=== PATIENT | male | born 1940 | race Caucasian/White ===

== ENCOUNTER 2018-10-22 10:14 | Day surgery (SDC) | payer MEDICARE, OTHER, SELFPAY ==
--- NOTE | 2018-10-18 14:14 | PM.PREOP ---
Pre-operative Note Interval Note History & Physical reviewed/Exam performed by Physician: Yes Changes to H&P: No
--- NOTE | 2018-10-18 14:14 | PM.OP.1 ---
Operative Date/Time/Diagnoses Date of procedure: 10/22/18 Time of procedure: 13:15 Procedure & Clinicians Procedure: Preoperative diagnoses: 1. Nuclear sclerotic cataract 2. Astigmatism which is to be corrected with a toric intraocular lens implant. Postoperative diagnoses: 1. Cataract removal with phacoemulsification with toric posterior chamber intraocular lens implant placed. 2. Mild macular pucker. 3. Mild dry macular degeneration. Procedure: Phacoemulsification with posterior chamber toric intraocular lens implant. Surgeon: Taylor Cochran MD Complications: None Specimen: None Implant: [id number] [place] 147 Blood loss: None Anesthesia: Retrobulbar with monitored standby Description of procedure: Patient presents with a complaint of decreased vision due to cataract which is affecting activities of daily living. The patient wants surgery to improve vision and astigmatism. The patient was taken to the operating room and proparacaine drops placed. Indelible ink orr were placed at the 90 and 180 degree meridian. The patient was placed on the operating room table and given IV sedation. A retrobulbar block insert consisting of 6 cc of 2% xylocaine without epinephrine mixed half and half with 0.5% Marcaine with 1 cc of hyaluronidase added is placed between the medial and lateral 1/3 of the inferior orbital rim. Lid akinesia is obtain with 1% xylocaine with epinephrine infiltrated along the lid margin. The eye is manually massaged for 30 sec, prepped using Betadine solution, and draped in the usual sterile fashion. Temporal approach was made, a 1 mm side-port incision was made 90? from the proposed corneal wound. Phenylephrine 1.5% mixed with 1% xylocaine 0.2 cc was placed into the anterior chamber. Viscoat followed by Keith was then placed. A 2.6 mm clear incision with a 2.6 mm blade was placed at the 170 degree meridian. A 360 degree capsulorrhexis style capsulotomy was then performed with a cystitome needle on a [place]. Hydrodelineation and hydrodissection were performed. The phacoemulsification unit is introduced, and sculpting used to groove the central lens. It is then removed in chopping mode. Epi nucleus is removed with epinuclear mode and irrigation aspiration was used to remove the peripheral cortex. The posterior capsule is polished. The intraocular lens is selected, inspected, power confirmed, and placed in the posterior chamber at the desired meridian. The pupil was not constricted. The wound was stromally hydrated and tested for leaks, there was none and it was left sutureless. Vigamox 0.1 cc was placed into the anterior chamber. Kenalog 0.2 cc was placed in the superior subconjunctival space. A drop of antibiotic and was placed and the eye was patched and shielded. The patient was stable and returned to the recovery room in excellent condition. Dictated by: Taylor Cochran MD Copy to: [facility]
[2018-10-22] MEDS: PROPARACAINE 0.5% OPHTH SOL 2 DROPS EYE-OP ×2 (11:06→12:15)
[2018-10-22] MEDS: CATARACT EYE COMPOUND (10 DROPS/SYRINGE) 3 DROPS EYE-OP ×3 (11:08→11:24)
[2018-10-22 11:09] VITALS: BP 129/68; PULSE 56; RESP 16; TEMP 36.7; O2SAT 100; BMI 20.8
[2018-10-22] MEDS: LIDOCAINE 1% W/EPI INJ 20 ML INJ (12:11)
[2018-10-22] MEDS: MOXIFLOXACIN OPHTH DROPS 3 ML BOTTLE 2 DROPS INJ (12:11)
[2018-10-22] MEDS: CHONDROIDTIN/SOD HYALURONATE 1.05 ML SYRINGE INTRAOCULA (12:11)
[2018-10-22] MEDS: BALANCED SALT IRRIG SOLN NO.2 15 ML IRR (12:11)
[2018-10-22] MEDS: HYALURONATE SODIUM 10 MG/ML SYRINGE INJ (12:11)
[2018-10-22] MEDS: NEOMYCIN/POLY/DEX OPHTH OINT 1 APPLIC EYE-LEFT (12:12)
[2018-10-22] MEDS: OFLOXACIN 0.3% OPHTH 5 ML 2 DROPS EYE-LEFT (12:12)
[2018-10-22] MEDS: TRIAMCINOLONE 50 MG/5 ML VIAL INJ (12:13)
[2018-10-22] MEDS: BALANCED SALT IRRIG SOLN NO.2 500 ML, EPINEPHrine 1 MG IRR (12:13)
[2018-10-22] MEDS: PHENYLEPHRINE/LIDOCAINE VIAL (OR) 0.2 ML EYE-OP (12:13)
[2018-10-22] MEDS: LIDOCAINE 2% 4 ML, BUPIVACAINE 0.5% (PF) 4 ML, HYALURONIDASE 150 UNIT INJ (12:14)
[2018-10-22 12:40] VITALS: BP 121/70; PULSE 53; RESP 16; TEMP 36.6; O2SAT 100
== END 2018-10-22 13:02 | disposition home or self-care (01) ==
LOC: OR 10:18
PROVIDERS: PCP Family Medicine Sports Medicine; Visit Provider Ophthalmology
PROC: (CPT 66984; principal; 2018-10-22 11:45)
DX: H25.12 Age-related nuclear cataract, left eye (principal); H52.202 Unspecified astigmatism, left eye; H35.379 Puckering of macula, unspecified eye; H35.3190 Nonexudative age-related macular degeneration, unspecified eye, stage unspecified
CPT/HCPCS: 66984; J0171; J2250; J2704; J3010; J3301; J3470; V2787

== ENCOUNTER 2018-11-26 11:44 | Day surgery (SDC) | payer MEDICARE, OTHER, SELFPAY ==
--- NOTE | 2018-11-23 16:03 | PM.PREOP ---
Pre-operative Note Interval Note History & Physical reviewed/Exam performed by Physician: Yes Changes to H&P: No
--- NOTE | 2018-11-23 16:04 | PM.OP.1 ---
Operative Date/Time/Diagnoses Date of procedure: 11/26/18 Time of procedure: 13:15 Procedure & Clinicians Procedure: Preoperative diagnoses: 1. Nuclear sclerotic cataract 2. Astigmatism which is to be corrected with a toric intraocular lens implant. Postoperative diagnoses: 1. Cataract removal with phacoemulsification with toric posterior chamber intraocular lens implant placed. Procedure: Phacoemulsification with posterior chamber toric intraocular lens implant. Surgeon: Taylor Cochran MD Complications: None Specimen: None Implant: [id number] +17.5 [place] 005. Blood loss: None Anesthesia: Retrobulbar with monitored standby Description of procedure: Patient presents with a complaint of decreased vision due to cataract which is affecting activities of daily living. The patient wants surgery to improve vision and astigmatism. The patient was taken to the operating room and proparacaine drops placed. Indelible ink orr were placed at the 90 and 180 degree meridian. The patient was placed on the operating room table and given IV sedation. A retrobulbar block insert consisting of 6 cc of 2% xylocaine without epinephrine mixed half and half with 0.5% Marcaine with 1 cc of hyaluronidase added is placed between the medial and lateral 1/3 of the inferior orbital rim. Lid akinesia is obtain with 1% xylocaine with epinephrine infiltrated along the lid margin. The eye is manually massaged for 30 sec, prepped using Betadine solution, and draped in the usual sterile fashion. Temporal approach was made, a 1 mm side-port incision was made 90? from the proposed corneal wound. Phenylephrine 1.5% mixed with 1% xylocaine 0.2 cc was placed into the anterior chamber. Viscoat followed by Keith was then placed. A 2.6 mm clear incision with a 2.6 mm blade was placed at the 170 degree meridian. A 360 degree capsulorrhexis style capsulotomy was then performed with a cystitome needle on a [place]al[place]. Hydrodelineation and hydrodissection were performed. The phacoemulsification unit is introduced, and sculpting used to groove the central lens. It is then removed in chopping mode. Epi nucleus is removed with epinuclear mode and irrigation aspiration was used to remove the peripheral cortex. The posterior capsule is polished. The intraocular lens is selected, inspected, power confirmed, and placed in the posterior chamber at the desired meridian of 005 degrees. The pupil was not constricted. The wound was stromally hydrated and tested for leaks, there was none and it was left sutureless. Vigamox 0.1 cc was placed into the anterior chamber. Kenalog 0.2 cc was placed in the superior subconjunctival space. A drop of antibiotic and was placed and the eye was patched and shielded. The patient was stable and returned to the recovery room in excellent condition. Dictated by: Taylor Cochran MD Copy to: [facility]
[2018-11-26] MEDS: PROPARACAINE 0.5% OPHTH SOL 2 DROPS EYE-RIGHT (12:20)
[2018-11-26 12:28] VITALS: BP 126/67; PULSE 60; RESP 16; TEMP 36.4; O2SAT 100; BMI 20.5
[2018-11-26] MEDS: CATARACT EYE COMPOUND (10 DROPS/SYRINGE) 3 DROPS EYE-OP (12:35)
--- NOTE | 2018-11-26 13:27 | SUR.OPER ---
Supine on eye stretcher, head on extension cradle secured with tape. Arms tucked at sides with blanket. Pillow under knees.
[2018-11-26] MEDS: LIDOCAINE 1% W/EPI INJ 20 ML INJ (13:31)
[2018-11-26] MEDS: LIDOCAINE 2% 4 ML, BUPIVACAINE 0.5% (PF) 4 ML, HYALURONIDASE 150 UNIT INJ (13:31)
[2018-11-26] MEDS: MOXIFLOXACIN OPHTH DROPS 3 ML BOTTLE 2 DROPS INJ ×2 (13:32→13:33)
[2018-11-26] MEDS: TRIAMCINOLONE 50 MG/5 ML VIAL INJ (13:33)
[2018-11-26] MEDS: CHONDROIDTIN/SOD HYALURONATE 1.05 ML SYRINGE INTRAOCULA (13:34)
[2018-11-26] MEDS: NEOMYCIN/POLY/DEX OPHTH OINT 1 APPLIC EYE-RIGHT (13:34)
[2018-11-26] MEDS: BALANCED SALT IRRIG SOLN NO.2 15 ML IRR (13:34)
[2018-11-26] MEDS: HYALURONATE SODIUM 10 MG/ML SYRINGE INJ (13:34)
[2018-11-26] MEDS: OFLOXACIN 0.3% OPHTH 5 ML 2 DROPS EYE-RIGHT (13:35)
[2018-11-26] MEDS: BALANCED SALT IRRIG SOLN NO.2 500 ML, EPINEPHrine 1 MG IRR (13:36)
[2018-11-26 14:01] VITALS: BP 137/82; PULSE 56; RESP 15; TEMP 36.1; O2SAT 99
== END 2018-11-26 14:25 | disposition home or self-care (01) ==
LOC: OR 11:46
PROVIDERS: PCP Family Medicine Sports Medicine; Visit Provider Ophthalmology
PROC: (CPT 66984; principal; 2018-11-26 13:15)
DX: H25.11 Age-related nuclear cataract, right eye (principal); H52.201 Unspecified astigmatism, right eye
CPT/HCPCS: 66984; J0171; J2250; J2704; J3010; J3301; J3470; V2787